=== PATIENT | male | born 1965 ===

== ENCOUNTER 2017-03-28 17:55 | Emergency (ER) | payer OTHER ==
--- NOTE | 2017-03-28 18:20 | ERNOTE ---
Lower Extremity HPI - General Lower Extremities Pain: knee: left Time Seen by Provider: 03/28/17 18:01 Source: patient Exam Limitations: no limitations - Immun/Allergies/Home Medications Immunizations: IMMUNIZATION HX Immunizations Up to Date Yes History of Influenza Vaccine No Hx Pneumococcal Vaccination No Allergies/Adverse Reactions: Allergies Allergy/AdvReac Type Severity Reaction Status Date / Time No Known Allergies Allergy Unverified 03/03/17 13:08 Home Medications: HOME MEDICATIONS Amlodipine Besylate 5 mg PO DAILY 03/03/17 [Last Taken 03/03/17] Benazepril HCl 20 mg PO DAILY 03/03/17 [Last Taken 03/03/17] Fenofibrate 160 mg PO DAILY 03/03/17 [Last Taken 03/03/17] Multivitamin [Multivitamins] 1 each PO DAILY 03/03/17 [Last Taken 03/03/17] Omeprazole Magnesium [Prilosec Otc] 20 mg PO DAILY 03/03/17 [Last Taken 03/03/17 ] Crutch 2 each MC DAILY #2 each 03/28/17 [Last Taken Unknown] Leg Brace [Knee Brace] 1 each MC DAILY #1 each 03/28/17 [Last Taken Unknown] Naproxen [Naprosyn] 500 mg PO BID #60 tablet 03/28/17 [Last Taken Unknown] - History of Present Illness Narrative: Patient was at work and apparently stepped in a hole and twisted his left knee and heard a pop. Patient states that he is unable to do any significant weightbearing at this point without severe pain, however as long as he sits still there is little to no pain. Occurred: just prior to arrival Location of Incident: work Method of Injury: Reports: twisted Loss of Consciousness: Reports: no loss of consciousness Modifying Factors - (Improves): Reports: cold therapy Modifying Factors - (Worsens): Reports: movement Associated Symptoms: Reports: unable to bear weight - because of the pain Other Injuries: Reports: none Review of Systems - Review of Systems Constitutional: Present: See HPI EYE: Present: no symptoms reported ENT: Present: no symptoms reported Respiratory: Present: no symptoms reported Cardiology: Present: no symptoms reported Gastrointestinal/Abdominal: Present: no symptoms reported Genitourinary: Present: no symptoms reported Musculoskeletal: Present: See HPI, joint pain Skin: Present: no symptoms reported Neurological: Present: no symptoms reported Endocrine: Present: no symptoms reported Hematologic/Lymphatic: Present: no symptoms reported Psych: Present: no symptoms reported - Patient's Past Medical History Patient History - Medical: GERD Patient History - Cardiac/Respiratory: Hypertension, Hyperlipidemia Patient History - Cancer: No Hx of Cancer Patient History - Surgical Procedures: Colon Resection, Hernia Repair Patient History - Other: None - Social History Living Situations: home Abuse History: No History of abuse Psych History: No pertinent hx Smoking Status: Never smoker Have you smoked in the past 12 months: No Do you dip or chew tobacco: No Alcohol Use: none Drug Use: none - Immunizations Immunizations Up to Date: Yes Hx Pneumococcal Vaccination: No History of Influenza Vaccine: No Physical Exam - Physical Exam General Appearance: Present: wd/wn, alert, moderate distress Eye Exam: Normal inspection: bilateral, PERRL: bilateral Ears, Nose, Throat: Present: normal ENT inspection, H, normal pharynx Neck: Present: normal inspection, nontender Respiratory: Present: no respiratory distress, normal breath sounds, no accessory muscle use, chest nontender, lungs clear Cardiovascular/Chest: Present: regular rate, rhythm, no murmur, normal peripheral pulses Gastrointestinal/Abdominal: Present: normal bowel sounds, nontender, nondistended, soft, no organomegaly Rectal Exam: Present: deferred Back Exam: Present: normal inspection, normal range of motion Extremity Exam: Present: no edema, decreased range of motion, other - pt has pain with all the orthopedic tests of the knee including Drawer test, Apley's compression and when stretching the medial and collateral ligaments Neurological Exam: Present: alert, oriented, normal mood/affect Skin Exam: Present: normal color, warm/dry Lymphatic Exam: Present: no adenopathy ED Progress - Vital Signs Patient's Vital Signs:: I have reviewed the patient's vital signs. Vital Signs: Vital Signs 03/28/17 18:01 Temperature 36.5 C Pulse Rate 69 Respiratory 14 Rate Blood Pressure 132/94 O2 Sat by Pulse 96 Oximetry - X-Ray X-Ray #1 X-Ray: knee Interpretation: Reviewed by me - Progress/Reassessment Chief Complaint: Lower Extremity Pain/ Injury Plan - Plan Plan: Patiently placed on NSAIDs for the pain, a knee immobilizer to minimize movement and crutches so he has no further weight bearing on that left knee. Patient was given a referral to orthopedics tomorrow for further evaluation. Departure Clinical Impression: Hyperextension injury of knee Qualifiers: Encounter type: initial encounter Laterality: left Qualified Code(s): S89.82XA - Other specified injuries of left lower leg, initial encounter Internal derangement of knee Qualifiers: Laterality: left Qualified Code(s): M23.92 - Unspecified internal derangement of left knee - Departure Disposition: Home self-care Condition: Good Instructions: Knee Sprain, [id number] Referrals: Blayne Elizabeth MD [Primary Care Provider] - Maximiliano Mistry MD [Staff Physician] - Prescriptions: Crutch 2 each MC DAILY #2 each Leg Brace [Knee Brace] 1 each MC DAILY #1 each Naproxen [Naprosyn] 500 mg PO BID #60 tablet
[2017-03-28 19:38] VITALS: BP 125/87
== END 2017-03-28 19:05 | disposition home or self-care (01) ==
LOC: ER 17:55
PROC: 2W3MX1Z Immobilization of Left Lower Extremity using Splint (ICD-10-PCS; principal; 2017-03-28)
DX: S89.82XA Other specified injuries of left lower leg, initial encounter (principal); W17.2XXA Fall into hole, initial encounter; Y92.89 Other specified places as the place of occurrence of the external cause; Y99.0 Civilian activity done for income or pay